=== PATIENT | male | born 1995 | race Caucasian/White ===

== ENCOUNTER 2021-08-31 11:13 | Emergency (ER) | payer OTHER ==
[~2021-08-31] VITALS: Ht 182.9 cm; Wt 74.8 kg
[2021-08-31] MEDS ORDERED: IBUPROFEN 600 MG TAB PO ONE (12:45)
[2021-08-31 13:00] VITALS: BP 134/84
[2021-08-31] MEDS: HYDROcodone-ACET 5/325MG TAB PO ONE ×2 (13:12→13:18)
== END 2021-08-31 13:25 | disposition home or self-care (01) ==
LOC: ER 11:13 → EDBD 11:13 → ER 13:25
DX: S43.401A Unspecified sprain of right shoulder joint, initial encounter (principal); Z20.822 Contact with and (suspected) exposure to COVID-19; W18.39XA Other fall on same level, initial encounter; Y93.89 Activity, other specified; Y92.89 Other specified places as the place of occurrence of the external cause; Y99.8 Other external cause status
CPT/HCPCS: 36415; 73030; 87426